=== PATIENT | male | born 1990 ===

== ENCOUNTER 2024-10-14 07:11 | Emergency (ER) | payer SELFPAY ==
[2024-10-14 07:12] VITALS: BP 109/75; PULSE 90; RESP 21; TEMP 36.7; O2SAT 99
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
[2024-10-14 07:49] LABS: Basophils % 0.4 %; Eosinophils # 0.1 10^3/uL (0.2-1.9); Eosinophils % 1.5 %; Hematocrit 44.9 % (42.0-60.0); Lymphocytes # 2.9 10^3/uL (2.0-11.0); Lymphocytes % 42.5 %; Mean Corpuscular HGB Conc 33.6 g/dL (30.0-36.0); Mean Corpuscular Hemoglobin 27.2 pg (31.0-37.0); Mean Corpuscular Volume 80.8 fl (98-118.0); Monocytes # 0.4 10^3/uL (0.4-2.0); Monocytes % 5.2 %; Neutrophils # 3.35 10^3/uL (6.0-26.0); Nucleated Red Blood Cells % 0 %; Platelet Count 258 10^3/cmm (157-399); Red Blood Count 5.56 10^6/uL (3.9-5.5); White Blood Count 6.71 10^3/uL (9.0-34.0)
[2024-10-14] MEDS: iohexol 350 mg/mL 500 mL Btl (per mL) IV (08:06)
[2024-10-14 08:11] VITALS: BP 108/69; PULSE 63; O2SAT 98
[2024-10-14] MEDS: tetanus-dipt-pertussis 0.5 mL SDV IM (08:13)
[2024-10-14 08:15] LABS: Alanine Aminotransferase 18 U/L (0-41); Albumin Level 4.4 g/dL (3.5-5.2); Alkaline Phosphatase 94 U/L (40-130); Anion Gap 16.2 (5-19); Aspartate Amino Transferase 23 U/L (0-40); Blood Urea Nitrogen 10 mg/dL (6-20); Calcium 9.4 mg/dL (8.5-10.5); Carbon Dioxide 26 mmol/L (22-29); Chloride 105 mmol/L (98-107); Globulin 3.3 g/dL (1.3-4.6); Glomerular Filtration Rate 109.4 mL/min (90-130); Glucose 99 mg/dL (65-115); Osmolality Calculated 295 mOsm/kg (285-295); Potassium 4.2 mmol/L (3.5-5.1); Sodium 143 mmol/L (136-145); Total Bilirubin 0.3 mg/dL (0.15-1.2); Total Protein 7.7 g/dL (6.6-8.7)
[2024-10-14 09:09] VITALS: BP 119/67; PULSE 72; O2SAT 99
== END 2024-10-14 09:19 | disposition home or self-care (01) ==
PROVIDERS: Emergency Provider Family Medicine
DX: S30.811A Abrasion of abdominal wall, initial encounter (principal); S50.311A Abrasion of right elbow, initial encounter; V89.2XXA Person injured in unspecified motor-vehicle accident, traffic, initial encounter
CPT/HCPCS: 36415; 70450; 71260; 72125; 74177; 80053; 85025; 90471; 90715; 99285